=== PATIENT | female | born 1980 | race Caucasian/White ===

== ENCOUNTER 2020-08-28 12:16 | Outpatient (CLI) | payer BC, SELFPAY ==
--- NOTE | ~2020-08-28 | MMUS_ITS ---
EXAMINATION: MM diagnostic alana LT w hellen, US breast LT limited HISTORY: Palpable left breast abnormality TECHNIQUE: Additional 3-D tomosynthesis images of the left breast were performed and synthetic 2-D im ages were generated. CAD analysis was submitted and interpreted. High resolution targeted left breast ultrasound was performed. COMPARISON: 04/04/2016 BREAST PARENCHYMAL COMPOSITION: Breast composed of scattered areas of fibroglandular density. FINDINGS: MAMMOGRAPHIC FINDINGS: There is focal asymmetry in the area of palpable concern in the upper inner quadrant posteriorly, alt almas no discrete mass identified. No suspicious calcifications or architectural distortion. ULTRASOUND: Limited left breast ultrasound: There is a 2 mm cyst at 11:00, 14 cm from the nipple in the area of p alpable concern. No suspicious solid masses are identified. IMPRESSION: 1. Subtle focal asymmetry near the area of palpable concern without definite sonographic correlate. 2. Recommend 6 month follow-up diagnostic left mammogram BI-RADS category 3, probably benign findings. Reviewed, dictated and finalized at location A. IMPRESSION: 1. Subtle focal asymmetry near the area of palpable concern without definite so nographic correlate. 2. Recommend 6 month follow-up diagnostic left mammogram BI-RADS category 3, probably benign findings.
== END 2020-08-28 12:17 | disposition home or self-care (01) ==
PROVIDERS: PCP Internal Medicine; Visit Provider Internal Medicine
DX: N63.20 Unspecified lump in the left breast, unspecified quadrant (principal)
CPT/HCPCS: 76642; 77061; 77065; G0279

== ENCOUNTER 2020-10-02 11:22 | Outpatient (CLI) | payer BC, SELFPAY ==
[2020-10-03 01:03] LABS: SARS-CoV-2 RNA PCR Positive
== END 2020-10-02 11:23 | disposition home or self-care (01) ==
PROVIDERS: PCP Internal Medicine; Visit Provider Internal Medicine
DX: U07.1 COVID-19 (principal)
CPT/HCPCS: 87635; C9803; U0003

== ENCOUNTER 2020-10-09 00:19 | Outpatient (CLI) | payer BC, SELFPAY ==
[2020-10-09 19:24] LABS: SARS-CoV-2 RNA PCR Positive
== END 2020-10-09 00:20 | disposition home or self-care (01) ==
LOC: ANHCOVIDDT 00:19
PROVIDERS: PCP Internal Medicine; Visit Provider Surgery
DX: U07.1 COVID-19 (principal)
CPT/HCPCS: 87635; C9803; U0003

== ENCOUNTER 2021-03-03 17:23 | Outpatient (CLI) | payer BC, SELFPAY ==
[2021-03-03 17:34] LABS: Basophils Absolute Auto 0.09 K/mm3 (0.00-0.10); Basophils Percent Auto 0.7 % (0.0-1.0); Eosinophils Absolute Auto 0.12 K/mm3 (0.02-0.50); Hematocrit 41.6 % (35.0-49.0); Hemoglobin 13.6 g/dL (12.0-15.0); Immature Granulocyte Absolute 0.05 K/mm3 (0.00-0.00); Immature Granulocyte Percent A 0.4 % (0.0-0.0); Lymphocytes Percent Auto 26.6 % (18.0-42.0); Mean Corpuscular HGB Conc 32.7 g/dL (32.0-36.0); Mean Corpuscular Hemoglobin 28.6 pg (27.0-31.0); Mean Corpuscular Volume 87.6 fL (78.0-102.0); Mean Platelet Volume 11.7 fl (9.2-11.8); Monocytes Absolute Auto 0.79 K/mm3 (0.10-0.90); Monocytes Percent Auto 6.6 % (2.0-11.0); Neutrophils Absolute Auto 7.8 K/mm3 (1.7-7.2); Neutrophils Percent Auto 64.7 % (50.0-70.0); Platelet Count Result 362 K/mm3 (150-420); Red Blood Count 4.75 M/mm3 (4.20-5.40); Red Cell Distribution Width 13.4 % (11.6-14.4)
[2021-03-03 19:08] LABS: Alanine Aminotransferase 63 U/L (14-59); Albumin Level 3.7 g/dL (3.4-5.0); Alkaline Phosphatase 116 U/L (46-116); Anion Gap 10 mmol/L (8-16); Aspartate Amino Transferase 30 U/L (15-37); Bilirubin,Total 0.4 mg/dL (0.00-1.00); Blood Urea Nitrogen 13 mg/dL (7-18); Calcium 9.1 mg/dL (8.5-10.1); Carbon Dioxide 28 mmol/L (21-32); Chloride 102 mmol/L (98-108); Estimated Glomerular Filt Rate > 60; Glucose 77 mg/dL (70-99); Osmolality Calculated 289 mOsm/kg (285-295); Potassium 4.2 mmol/L (3.5-5.1); Sodium 140 mmol/L (136-145); Thyroid Stimulating Hormone 0.01 uIU/mL (0.36-3.74); Total Protein 7.1 g/dL (6.4-8.2)
[2021-03-03 19:10] LABS: Vitamin B12 > 2000 pg/mL (193-986)
[2021-03-08 04:13] LABS: Vitamin D 25 Hydroxy 33 ng/mL (30-100)
[2021-03-08 10:02] LABS: Vitamin D 1,25 (OH)2 Total 66 pg/mL (18-72); Vitamin D2 1,25 (OH)2 <8 pg/mL; Vitamin D3 1,25 (OH)2 66 pg/mL
[2021-03-09 09:23] LABS: Hepatitis A Antibody IgM Nonreactive; Hepatitis B Core Antibody Nonreactive (Nonreactive); Hepatitis B Surface Antigen Nonreactive (Nonreactive); Hepatitis C Signal to Cutoff 0.01 ratio (<1.00); Hepatitis C Virus Antibody Nonreactive (Nonreactive)
== END 2021-03-03 17:24 | disposition home or self-care (01) ==
LOC: CHSLAB 17:25
PROVIDERS: PCP Internal Medicine; Visit Provider Internal Medicine
DX: E03.9 Hypothyroidism, unspecified (principal); Z98.84 Bariatric surgery status; R94.5 Abnormal results of liver function studies
CPT/HCPCS: 36415; 80053; 80074; 82306; 82607; 82652; 84443; 85025

== ENCOUNTER 2022-02-03 09:05 | Outpatient (CLI) | payer OTHER, BC, SELFPAY ==
[2022-02-03 09:21] LABS: Basophils Absolute Auto 0.07 K/mm3 (0.00-0.10); Basophils Percent Auto 0.8 % (0.0-1.0); Eosinophils Percent Auto 1.2 % (1.0-6.0); Hematocrit 40.3 % (35.0-49.0); Hemoglobin 13.3 g/dL (12.0-15.0); Immature Granulocyte Absolute 0.02 K/mm3 (0.00-0.00); Immature Granulocyte Percent A 0.2 % (0.0-0.0); Lymphocytes Percent Auto 35.8 % (18.0-42.0); Mean Corpuscular Volume 90.8 fL (78.0-102.0); Mean Platelet Volume 11.5 fl (9.2-11.8); Monocytes Absolute Auto 0.68 K/mm3 (0.10-0.90); Monocytes Percent Auto 8.1 % (2.0-11.0); Neutrophils Absolute Auto 4.5 K/mm3 (1.7-7.2); Neutrophils Percent Auto 53.9 % (50.0-70.0); Platelet Count Result 340 K/mm3 (150-420); Red Blood Count 4.44 M/mm3 (4.20-5.40); Red Cell Distribution Width 12.8 % (11.6-14.4); White Blood Count 8.4 K/mm3 (4.8-10.8)
[2022-02-03 10:05] LABS: Add Urine Microscopic? NO; Appearance Urine Clear (Clear); Bilirubin Urine Negative (Negative); Blood Urine Negative (Negative); Color Urine Yellow (Yellow); Glucose Urine UA Negative (Negative); Ketones Urine Negative (Negative); Leukocyte Esterase Ur Negative (Negative); Nitrate Urine Negative (Negative); Protein Urine Negative (Negative); Urobilinogen Urine 0.2 mg/dL (0.2-1.0)
[2022-02-03 10:12] LABS: Alanine Aminotransferase 50 U/L (14-59); Albumin Level 3.5 g/dL (3.4-5.0); Alkaline Phosphatase 83 U/L (46-116); Anion Gap 8 mmol/L (8-16); Aspartate Amino Transferase 22 U/L (15-37); Bilirubin,Total 0.7 mg/dL (0.00-1.00); Blood Urea Nitrogen 18 mg/dL (7-18); Calcium 8.6 mg/dL (8.5-10.1); Carbon Dioxide 27 mmol/L (21-32); Chloride 104 mmol/L (98-108); Cholesterol 163 mg/dL (0-200); Estimated Glomerular Filt Rate > 60; Ferritin 157 ng/mL (8-252); Glucose 79 mg/dL (70-99); HDL Direct 63 mg/dL (40-60); Iron 117 ug/dL (50-170); LDL Cholesterol Calculated 86 mg/dL (<130); Osmolality Calculated 288 mOsm/kg (285-295); Potassium 4.5 mmol/L (3.5-5.1); Sodium 139 mmol/L (136-145); Thyroid Stimulating Hormone 0.14 uIU/mL (0.36-3.74); Total Protein 6.6 g/dL (6.4-8.2); Triglycerides 69 mg/dL (0-150)
[2022-02-03 10:13] LABS: Vitamin B12 > 2000 pg/mL (193-986)
[2022-02-08 10:33] LABS: Vitamin D 1,25 (OH)2 Total 49 pg/mL (18-72); Vitamin D2 1,25 (OH)2 <8 pg/mL; Vitamin D3 1,25 (OH)2 49 pg/mL
[2022-02-10 15:12] LABS: Vitamin D 25 Hydroxy 31 ng/mL (30-100)
== END 2022-02-03 09:06 | disposition home or self-care (01) ==
LOC: CHSLAB 09:10
PROVIDERS: PCP Internal Medicine; Visit Provider Internal Medicine
DX: Z00.00 Encounter for general adult medical examination without abnormal findings (principal); Z98.84 Bariatric surgery status
CPT/HCPCS: 36415; 80053; 80061; 81003; 82306; 82607; 82652; 82728; 83540; 84443; 85025

== ENCOUNTER 2022-03-04 11:37 | Emergency (ER) | payer OTHER, BC, SELFPAY ==
--- NOTE | ~2022-03-04 | US_ITS ---
EXAMINATION: US right upper quadrant DATE: 03/04/2022 12:23 INDICATION: Right upper quadrant pain TECHNIQUE: Multiple grayscale and Doppler ultrasound images of the abdomen were obtained. COMPARISON: None available FINDINGS: The head and body of the pancreas are normal. The pancreatic tail is obscured by bowel gas. The liver is normal with normal echogenicity and echotexture. No surface nodularity. Normal hepatope alex flow in the main portal vein. Stones are present in the nondistended gallbladder. There is no per icholecystic fluid or gallbladder wall thickening. The normal common bile duct measures 5 mm. There w as no sonographic Evans sign. IMPRESSION: 1. Cholelithiasis without additional findings of acute cholecystitis. Reviewed, dictated and finalized at location A.
--- NOTE | ~2022-03-04 | CT_ITS ---
EXAMINATION: CT abdomen pelvis wo con EXAM DATE: 03/04/2022 12:55 INDICATION: RUQ pain radiates to flank,N/V,X2HR . TECHNIQUE: Spiral CT of the abdomen and pelvis was performed without contrast. Axial, coronal and sag ittal images were reviewed. The dose-length product (DLP) for this examination was 884.46 mGy-cm. T he exposure was tailored according to patient size (auto mA exposure control), and iterative reconstr uction (ASIR) was used as additional dose reduction technique. There is no prior study for compariso n. FINDINGS: There is 4 mm left mid calyceal stone. No ureteral stones or hydronephrosis. The uterus i s not identified and has likely been surgically resected. The bladder is unremarkable. The liver, s pleen, adrenal glands and pancreas are unremarkable. The gallbladder is distended but otherwise unre markable, no calcified cholelithiasis. There is no biliary duct dilation. There is no retroperitone al or pelvic lymphadenopathy. There is mild scattered arteriosclerotic disease. The appendix is normal. There are surgical changes from intact gastric bypass surgery. There is mild to moderate scattered colonic diverticulosis. There is no adjacent inflammatory change to suggest d iverticulitis. There is expected amount of colonic stool. No free intraperitoneal gas. The heart is normal in size. There are no pericardial or pleural effusions. The lung bases are unremarkable. There are no osteoblastic or osteolytic lesions identified. IMPRESSION: 1. Moderately distended, but otherwise unremarkable gallbladder. 2. Left nephrolithiasis. No hydronephrosis. 3. Mild to moderate colonic diverticulosis. Reviewed, dictated and finalized at location B.
[2022-03-04 11:37] VITALS: BP 145/85; PULSE 78; RESP 20; TEMP 36.6
--- NOTE | 2022-03-04 11:45 | ECG_ITS ---
Measurements Intervals [place] Rate: 67 P: 47 RI: 152 QRS: 56 QRSD: 116 T: 47 QT: 412 QTc: 436 Interpretive Statements SINUS RHYTHM MODERATE INTRAVENTRICULAR CONDUCTION DELAY [110+ ms QRS DURATION] ABNORMAL ECG INTERPRETATION BASED ON A DEFAULT AGE OF 40 YEARS NO PREVIOUS ECG AVAILABLE FOR COMPARISON Electronically Signed On 03-05-2022 11:37:56 CDT by Abdullahi Lazaro M.D.
--- NOTE | 2022-03-04 11:45 | ED.ABDPAIN ---
HPI - Abdominal Pain General Chief Complaint: Abdominal Pain Stated Complaint: UNKNOWN Time Seen by Provider: 03/04/22 11:38 Source: patient and RN notes reviewed Mode of arrival: ambulatory Limitations: no limitations History of Present Illness HPI narrative: Patient presented with acute onset of right upper quadrant abdominal pain radiation to her right flank and back. She presented feeling short of breath that she now reports is due to the pain. She denies any problems with her gallbladder. She denies any chest pain. She feels nauseated. She denies any fever chills, dysuria, diarrhea. MD elicited complaint: abdominal pain Pertinent past history: none Onset (ago): minute(s) (20) Pain Consistency: constant Location: RUQ Severity: moderate Quality: stabbing and sharp Radiation: R flank and back Migration to: no migration Exacerbating factors: nothing Relieving factors: nothing Associated symptoms: nausea Related Data Home Medications Medication Instructions Recorded Confirmed levothyroxine 175 mcg tablet 150 mcg PO DAILY 08/31/20 03/04/22 Allergies Allergy/AdvReac Type Severity Reaction Status Date / Time topiramate AdvReac Mild tingling Verified 09/11/20 10:24 Review of Systems Review of Systems: All systems reviewed & are unremarkable except as noted in HPI and below Constitutional: Constitutional: Denies chills and Denies fever(s) Cardiovascular: Cardiovascular: Denies chest pain Respiratory: Respiratory: Denies cough and Reports dyspnea Gastrointestinal: Gastrointestinal: Denies diarrhea, Reports nausea and Denies vomiting Genitourinary: Genitourinary: Denies hematuria and Denies dysuria [facility] Past Medical History Medical History (Updated 03/04/22 @ 14:09 by Jacob Cam MD) Hypothyroid Surgical History Surgical History (Updated 03/04/22 @ 12:03 by Jacob Cam MD) H/O gastric sleeve H/O: hysterectomy 2013 History of tonsillectomy and adenoidectomy Hx of tubal ligation Family History Family History Grandparent Breast cancer Other Breast cancer Social History Social History Smoking packs per day: 0.5 Smoking cigarettes per day: 10.0 Years smoked: 10 Smoking pack-years: 5.00 Smoking status: Former smoker Tobacco type: cigarettes Second hand tobacco smoke exposure: No Smoking end date: 09/20/19 Alcohol intake: current Alcohol use details: social Additional occupation/education comments: Corn Grower Gender identity (if verbalized by the patient): Female Spiritual care concerns: No Exam Const: General: no acute distress, alert and ill appearing acutely Nutritional Appearance: well nourished Orientation/consciousness: patient oriented x3 HENMT: Head: normal to inspection Ears: external ears normal Face and sinus: normal facial exam Mouth: Yes moist mucous membranes Eyes: Conjunctivae: conjunctivae normal Pupils: Equal, round and reactive pupils present EOM: EOMs intact bilaterally Neck: Neck: normal visual inspection Resp: Effort & Inspection: normal respiratory effort Auscultation: clear to auscultation bilaterally Cardio: Rate: regular rate Rhythm: regular rhythm GI: GI Palp: Yes Soft to palpation, Yes Tenderness to palpation present (GI) ( severe RUQ with moderate guarding), Yes Guarding due to palpation present (GI) and No Rebound tenderness present Auscultation: normal bowel sounds : General: Yes CVA tenderness on the right Back/Spine/Pelvis: Cervical Spine: cervical ROM normal Thoracic/Lumbar Spine: thoraco-lumbar ROM normal Skin: General skin exam: normal color Rashes: no rashes Neuro: General: patient oriented x3, moves all extremities, no meningeal signs, no focal motor deficits and CN's II-XI intact bilaterally Speech: normal speech Gait exam (Neuro): Normal gait present Extrem: Gener
[2022-03-04] MEDS: HYDROmorphone HCL INJ (*CRX) 2 MG/ML VIAL 1 MG IV PUSH (11:56)
[2022-03-04 12:05] LABS: Basophils Absolute Auto 0.08 K/mm3 (0.00-0.10); Basophils Percent Auto 0.7 % (0.0-1.0); Eosinophils Absolute Auto 0.06 K/mm3 (0.02-0.50); Eosinophils Percent Auto 0.5 % (1.0-6.0); Hematocrit 39.5 % (35.0-49.0); Hemoglobin 13.1 g/dL (12.0-15.0); Immature Granulocyte Absolute 0.03 K/mm3 (0.00-0.00); Immature Granulocyte Percent A 0.3 % (0.0-0.0); Lymphocytes Absolute Auto 4.11 K/mm3 (1.10-4.50); Lymphocytes Percent Auto 35.7 % (18.0-42.0); Mean Corpuscular HGB Conc 33.2 g/dL (32.0-36.0); Mean Corpuscular Hemoglobin 29.3 pg (27.0-31.0); Mean Corpuscular Volume 88.4 fL (78.0-102.0); Mean Platelet Volume 11.1 fl (9.2-11.8); Monocytes Absolute Auto 0.83 K/mm3 (0.10-0.90); Monocytes Percent Auto 7.2 % (2.0-11.0); Neutrophils Absolute Auto 6.4 K/mm3 (1.7-7.2); Neutrophils Percent Auto 55.6 % (50.0-70.0); Platelet Count Result 389 K/mm3 (150-420); Red Blood Count 4.47 M/mm3 (4.20-5.40); Red Cell Distribution Width 12.9 % (11.6-14.4); White Blood Count 11.5 K/mm3 (4.8-10.8)
--- NOTE | 2022-03-04 12:26 | PC.NURSE ---
pt complaint of nausea and emesis of yellow green phelgm during ultrasound.
[2022-03-04] MEDS: ONDANSETRON INJ 4 MG/2 ML VIAL IV PUSH (12:27)
[2022-03-04 12:28] VITALS: BP 125/74; PULSE 64; RESP 20; O2SAT 100
[2022-03-04 12:29] LABS: Alanine Aminotransferase 78 U/L (14-59); Albumin Level 3.6 g/dL (3.4-5.0); Alkaline Phosphatase 91 U/L (46-116); Anion Gap 16 mmol/L (8-16); Aspartate Amino Transferase 91 U/L (15-37); Bilirubin,Total 0.5 mg/dL (0.00-1.00); Blood Urea Nitrogen 13 mg/dL (7-18); Calcium 8.9 mg/dL (8.5-10.1); Carbon Dioxide 18 mmol/L (21-32); Chloride 102 mmol/L (98-108); Estimated CRCL calculation 97 ml/min; Estimated Glomerular Filt Rate > 60; Glucose 147 mg/dL (70-99); Lipase 77 U/L (73-393); Osmolality Calculated 285 mOsm/kg (285-295); Potassium 3.1 mmol/L (3.5-5.1); Sodium 136 mmol/L (136-145); Total Protein 7.2 g/dL (6.4-8.2)
[2022-03-04 12:30] LABS: CRP < 0.2 mg/dL (0.0-0.9)
[2022-03-04 13:19] VITALS: PULSE 77; RESP 20; O2SAT 100
--- NOTE | 2022-03-04 13:20 | PC.NURSE ---
DR MULLEN IN WITH PT TO DISCUSS PT CARE.
[2022-03-04 14:09] VITALS: BP 112/74; PULSE 56; RESP 20; TEMP 36.4; O2SAT 98
[2022-03-04] MEDS: ONDANSETRON HCL ODT 4 MG TABLET PO (14:26)
== END 2022-03-04 14:28 | disposition home or self-care (01) ==
PROVIDERS: Emergency Provider Emergency Medicine; PCP Internal Medicine
DX: K80.20 Calculus of gallbladder without cholecystitis without obstruction (principal)
CPT/HCPCS: 36415; 74176; 76705; 80053; 83690; 85025; 86140; 93005; 96374; 96375; 96376; 99284; A9270; J1170; J2405

== ENCOUNTER 2022-03-25 11:05 | Outpatient (CLI) | payer OTHER, BC, SELFPAY ==
[2022-03-25 11:49] LABS: Alanine Aminotransferase 44 U/L (14-59); Albumin Level 3.4 g/dL (3.4-5.0); Alkaline Phosphatase 95 U/L (46-116); Amylase 34 U/L (25-115); Anion Gap 6 mmol/L (8-16); Aspartate Amino Transferase 31 U/L (15-37); Bilirubin Direct 0.1 mg/dL (0-0.2); Bilirubin,Total 0.5 mg/dL (0.00-1.00); Blood Urea Nitrogen 9 mg/dL (7-18); Calcium 8.6 mg/dL (8.5-10.1); Carbon Dioxide 29 mmol/L (21-32); Chloride 103 mmol/L (98-108); Estimated Glomerular Filt Rate > 60; Glucose 83 mg/dL (70-99); Lipase 56 U/L (73-393); Osmolality Calculated 283 mOsm/kg (285-295); Potassium 3.9 mmol/L (3.5-5.1); Sodium 138 mmol/L (136-145); Total Protein 7.1 g/dL (6.4-8.2)
== END 2022-03-25 11:06 | disposition home or self-care (01) ==
LOC: CHSLAB 11:08
PROVIDERS: PCP Internal Medicine; Visit Provider Surgery
DX: K80.10 Calculus of gallbladder with chronic cholecystitis without obstruction (principal)
CPT/HCPCS: 36415; 80053; 82150; 82248; 83690

== ENCOUNTER 2022-03-28 02:07 | Day surgery (SDC) | payer OTHER, BC, SELFPAY ==
[2022-03-21 14:45] VITALS: BMI 29.6
--- NOTE | 2022-03-21 15:30 | SUR.PREOP ---
Report to the Outpatient Waiting Room, entrance under the green pavilion located off [facility], at time 0600 on date 03/28/22. OR Time: 0730. - You and your visitor will be asked a series of questions to screen for COVID 19 for your protection. - Only one visitor is allowed at this time. - The patient visitor is requested to leave or wait in car when not with patient. - A mask is required within the hospital. Patients may have clear liquids (water, carbonated beverages, clear teas, apple juice) until 3 hours prior to surgery with a maximum of 20 ounces. - No food from midnight until time of surgery - Infants may have breast milk until 4 hours before surgery, infant formula 6 hours prior to surgery. - Children will be allowed to drink immediately following surgery. If applicable, please bring a bottle or sippy cup to assist with drinking. Juice, water, soda, and popsicles are readily available. For infants on formula, please bring formula the day of surgery. Pacifiers are allowed. Take the following medications with a SIP of water the morning of surgery: LEVOTHYROXINE Medications to discontinue per physician N/A Date to take last dose STOP VITAMINES AND SUPPLIMENTS 3 DAYS PRIOR TO SURGERY Please no make-up, nail pashto, hairspray, perfume, deodorant, or body powder the day of surgery. No jewelry (including any body piercings) or valuables the day of surgery, leave them at home. Please take a shower or bath the night before, or the morning of, surgery with an antibacterial soap. Wear comfortable, loose fitting clothing. Children are encouraged to wear pajamas. - Jewelry must be removed prior to entering the operating room. Rings and piercings that are not removed may be cut off. - The hospital will not accept responsibility for valuables. - Please leave all valuables, including medications, at home the day of surgery. If you are going home after surgery, a licensed batch mixing truck driver must drive you home. - NO public transportation without another adult. - We recommend that an adult stay with you for 24 hours following discharge. - We also recommend that you do not drive, make important decision, drink alcoholic beverages, or take any drugs that were not prescribed by your health care provider for at least 24 hours after your discharge time. For Pediatric surgeries, we recommend two adults accompany the child home (only one inside the building at this time). Follow any additional instructions given to you from your surgeon. If you or anyone in your household have experienced Covid symptoms in the past week, please notify your surgeon or the nurse liaison at the phone number below for possible testing. Telephone instructions given to RICKY GONSALEZ and asked if any additional questions and then verbalized understanding. Patient advised to call surgeon office or pre surgery nurse liaison [phone] if any additional questions. PT WAS ASKED TO COME IN TO DO PREOP LABS. SHE IS TRYING TO GET IN AT [facility] ON MONDAY WHEN SHE GETS BACK FROM VACATION.
[2022-03-28] VITALS (11 sets, daily range): BP systolic 105–129; BP diastolic 61–91; PULSE 50–80; RESP 12–20; TEMP 36.2–36.7; O2SAT 96–100; BMI 30.3
[2022-03-28] MEDS: ACETAMINOPHEN 500 MG TABLET 1000 MG PO (06:59)
[2022-03-28] MEDS: KETOROLAC 15 MG/ML VIAL (*BKC) IV PUSH (07:00)
--- NOTE | 2022-03-28 07:18 | P.PNAN_ITS ---
Anes - Eval Pre Procedure Procedure: Operation Date: 03/28/22 07:30 Proposed Procedures p Laparoscopic Cholecystectomy, Possible Intraoperative Cholangiogram, Possible Open - Dahsawn Chang MD Date/Time: 03/28/22 07:18 Pre Op Diagnosis: Chronic Cholecystitis with Cholelithiasis Patient Data Age: 41 Gender: F Height: 1.73 m Weight: 90.4 kg Last Vital Signs Temp 36.7 C 03/28/22 07:04 Pulse 56 L 03/28/22 07:04 Resp 20 03/28/22 07:04 BP 129/91 H 03/28/22 07:04 Pulse Ox 100 03/28/22 07:04 Allergies Allergy/AdvReac Type Severity Reaction Status Date / Time topiramate AdvReac Mild tingling Verified 03/28/22 06:43 Home Medications Medication Instructions Recorded Confirmed Type levothyroxine 175 mcg tablet 150 mcg PO DAILY 08/31/20 03/21/22 History hydrocodone-acetaminophen 1 tablet PO Q6H PRN #10 tablet 03/04/22 03/21/22 Rx ondansetron HCl 4 mg PO Q8H PRN #10 tablet 03/04/22 03/21/22 Rx calcium 1 cap PO DAILY 03/21/22 03/28/22 History multivitamin 1 cap PO DAILY 03/21/22 03/28/22 History Patient hx anesthesia problems: post op nausea/vomiting Family hx anesthesia problems: none Results Review: All pre-operative results and documents have been reviewed as part of the pre-operative evaluation. [facility] Past Medical History Medical History Hypothyroid Surgical History Surgical History H/O gastric sleeve H/O: hysterectomy 2013 History of tonsillectomy and adenoidectomy Hx of tubal ligation Family History Family History Grandparent Breast cancer Other Breast cancer Social History Social History Smoking packs per day: 0.5 Smoking cigarettes per day: 10.0 Years smoked: 10 Smoking pack-years: 5.00 Smoking status: Former smoker Tobacco type: cigarettes Second hand tobacco smoke exposure: No Smoking end date: 09/20/19 Alcohol intake: current Alcohol use details: social Living arrangements: with family 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
--- NOTE | 2022-03-28 07:23 | WPDHPUPDATE1 ---
History and Physical Update Update Date/Time: 03/28/22 07:23 History and Physical has been reviewed, including an updated exam of the patient. There are NO changes in the patient's condition. Risks, benefits, and alternatives have been discussed and questions answered. Patient agrees to proceed with procedure.
--- NOTE | 2022-03-28 07:26 | P.PNAN_ITS ---
Anes - Initial Pre Proc Eval Procedure: Operation Date: 03/28/22 07:30 Proposed Procedures p Laparoscopic Cholecystectomy, Possible Intraoperative Cholangiogram, Possible Open - Dashawn Chang MD Date/Time: 03/28/22 07:26 Surgeon: Dashawn Chang MD Pre Op Diagnosis: Chronic Cholecystitis with Cholelithiasis Patient Data Age: 41 Gender: F Height: 1.73 m Weight: 90.4 kg Last Vital Signs Temp 36.7 C 03/28/22 07:04 Pulse 56 L 03/28/22 07:04 Resp 20 03/28/22 07:04 BP 129/91 H 03/28/22 07:04 Pulse Ox 100 03/28/22 07:04 Allergies Allergy/AdvReac Type Severity Reaction Status Date / Time topiramate AdvReac Mild tingling Verified 03/28/22 06:43 Home Medications Medication Instructions Recorded Confirmed Type levothyroxine 175 mcg tablet 150 mcg PO DAILY 08/31/20 03/21/22 History hydrocodone-acetaminophen 1 tablet PO Q6H PRN #10 tablet 03/04/22 03/21/22 Rx ondansetron HCl 4 mg PO Q8H PRN #10 tablet 03/04/22 03/21/22 Rx calcium 1 cap PO DAILY 03/21/22 03/28/22 History multivitamin 1 cap PO DAILY 03/21/22 03/28/22 History Patient hx anesthesia problems: post op nausea/vomiting Family hx anesthesia problems: none Results Review: All pre-operative results and documents have been reviewed as part of the pre-operative evaluation. [facility] Past Medical History Medical History Anxiety Hypothyroid Surgical History Surgical History H/O gastric sleeve H/O: hysterectomy 2013 History of tonsillectomy and adenoidectomy Hx of tubal ligation Family History Family History Grandparent Breast cancer Other Breast cancer Social History Social History Smoking packs per day: 0.5 Smoking cigarettes per day: 10.0 Years smoked: 10 Smoking pack-years: 5.00 Smoking status: Former smoker Tobacco type: cigarettes Second hand tobacco smoke exposure: No Smoking end date: 09/20/19 Alcohol intake: current Alcohol use details: social Living arrangements: with family 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 Informed Consent: The patient's anesthetic plan and its attendant risks and benefits were discussed with the patient/family/POA. Questions were solicited and answers provided to the satisfaction of the patient/family/POA.
[2022-03-28] MEDS: LACTATED RINGERS 1,000 ML 30 ML IV CONT ×2 (07:29→09:12)
[2022-03-28] MEDS: SCOPOLAMINE 1.5 MG PATCH TRANSDERM (07:29)
[2022-03-28] MEDS: ceFAZolin 2 GM/D5W 50 ML 2 GM/50 ML BAG IVPB (07:32)
[2022-03-28] MEDS: LIDO 2%/EPINEPHRINE 1:100,000 20 ML VIAL INFILTRATE (08:13)
--- NOTE | 2022-03-28 09:22 | P.OP_ITS ---
Procedure Note - Detailed Date of Procedure 03/28/22 Pre-op Diagnosis Chronic Cholecystitis with Cholelithiasis Post-op Diagnosis Same Procedure Performed Laproscopic Cholecystectomy Surgeon Dashawn Chang MD Rf Manager Em [email or web address].OR assistant news director Anesthesia General Indications Patient has had several episodes of significant epigastric pain. One did take her to the ER and at that time diagnosis was made of gallstones. Patient was seen in the office and after thorough discussion has elected for surgical intervention to avoid future episodes of problems. She has been carefully followed a low-fat diet and has not had further episodes since her office visit. Findings An apparently chronically inflamed gallbladder with palpable stones upon removal. Mild adhesions to the gallbladder from the omentum were present. Description of Procedure Patient was seen preoperatively in the holding area and risks, benefits and alternatives confirmed. Patient was taken to the operating room and general anesthesia was induced. A time out was then preformed with the surgery team confirming patient and site of surgery. The abdomen was prepped and draped in the usual sterile fashion. Incision was made just below the umbilicus with an 11 blade knife. I placed 2 stay sutures of O- Vicryl on either side of the mid- line fascia beneath the umbilicus and was then able to slide in the Elizalde cannula through the fascial defect into the peritoneum. First under low flow and then under high flow the abdomen was insufflated with carbon dioxide never exceeding a pressure of 14. Three 5 mm trocars were then introduced under direct vision. The following trocars were introduced under direct vision: a 5 mm in the epigastrium and two 5 mm trocars along the right costal margin laterally in the subcostal area. There were not many adhesions to the underside of the gallbladder. These were taken down with blunt and sharp dissection using some Bovie cautery for hemostasis. We were able to dissect this completely away from the neck of the gallbladder. I then carefully used the L-shaped cautery and the [place] dissector to dissect out the triangle of [place]. I then was able to dissect out both the cystic duct and cystic artery and identify a window of safety. The gall bladder was grasped and the cystic duct and artery were dissected free and clipped with an 5 mm endo-clip team assembly line machine operator. The cystic duct and artery were clipped with use of 2 clips on the patient's side 1 on the gallbladder side utilizing a 5 mm endoclip-team assembly line machine operator. The cystic duct was then transected. The cystic artery was also transected at this point. The gall bladder was removed using electrocautery and then removed from the abdomen using a large 10 mm grasper via the umbilical incision. The trocars were removed visualizing hemostasis and the remaining gas evacuated. The large trocar site at the umbilicus was closed with use of the 2 stay sutures of 0 Vicryl mentioned above and also a figure of 8 O-Vicryl suture. The 2 stay sutures mentioned above on either side of the fascia were also tied together to help approximate this midline fascia. Further local anesthetic was placed into each incision for postop pain control. The skin incisions were closed with subcuticular suture of 4-0 Monocryl. Surgical glue then was applied to all the incisions. Patient tolerated the procedure well was taken to the recovery room in good condition. Implants none Estimated Blood Loss 10 Drains No Packing No Pathology Yes (Gallbladder) Complications No immediate complications Condition Stable Disposition PACU
[2022-03-28] MEDS: fentaNYL CITRATE INJ (*CRX) 100 MCG/2 ML VIAL 25 MCG IV PUSH ×4 (09:38→10:00)
[2022-03-28] MEDS: oxyCODONE HCL (*CRX) 5 MG TAB IR PO (10:58)
--- NOTE | 2022-03-28 11:04 | SUR.PHASEII ---
1055 - dr. abbott in room talking with pt and pt's family
== END 2022-03-28 12:43 | disposition home or self-care (01) ==
PROVIDERS: PCP Internal Medicine; Visit Provider Surgery
PROC: 0FT44ZZ Resection of Gallbladder, Percutaneous Endoscopic Approach (ICD-10-PCS; CPT 47562; principal; 2022-03-28 07:30)
DX: K80.10 Calculus of gallbladder with chronic cholecystitis without obstruction (principal); R10.11 Right upper quadrant pain; K57.30 Diverticulosis of large intestine without perforation or abscess without bleeding; E03.9 Hypothyroidism, unspecified; Z87.891 Personal history of nicotine dependence; F41.9 Anxiety disorder, unspecified
CPT/HCPCS: 47562; 88304; A9270; J0690; J1100; J1170; J1885; J2250; J2405; J2704; J2710; J3010; J7030; J7120; Q9966

== ENCOUNTER 2022-09-23 12:56 | Outpatient (CLI) | payer OTHER, BC, SELFPAY ==
--- NOTE | ~2022-09-23 | CT_ITS ---
EXAMINATION: CT abdomen pelvis wo con DATE: 09/23/2022 13:24 INDICATION: Left flank pain. Known left-sided stone. Difficulty urinating. TECHNIQUE: Computed tomography (CT) of the abdomen and pelvis was performed without intravenous contr ast. Automated exposure control and iterative reconstruction technique were employed. Exam dose: 470 .00 mGy-cm total exam DLP. COMPARISON: March 04, 2022 CT abdomen pelvis FINDINGS: The lung bases are clear. Normal heart size. No pericardial or pleural effusion. Small sliding hiatal hernia. Postoperative change of the stomach. Status post cholecystectomy. No hepatic, splenic, pancreatic, adrenal or renal space-occupying mass lesion is evident on this limi latanya noncontrast examination. There is a 3 x 4.7 mm calculus at the left ureterovesical junction, without significant dilatation of the ureter or renal collecting system. No other urinary tract calculus. Normal caliber of the abdominal aorta. No intraperitoneal or retroperitoneal or pelvic mass lesion or adenopathy or ascites. Diverticulosis of the colon; no CT evidence of diverticulitis. No bowel obstruction, bowel wall thick ening, pneumatosis or intraperitoneal free air is detected. The urinary bladder is unremarkable. Uterus is likely surgically absent.. No suspicious osteolytic or osteoblastic lesions. IMPRESSION: 3 x 4.7 mm left ureteral vesicle junction calculus with minimal if any left hydrouretero nephrosis Small sliding hiatal hernia Postoperative change of the stomach Status post cholecystectomy Probable hysterectomy Diverticulosis of the colon Reviewed, dictated and finalized at Location A. Reviewed, dictated and finalized at location A. IMPRESSION: 3 x 4.7 mm left ureteral vesicle junction calculus with minimal if any left hydroureteronephrosis Small sliding hiatal hernia Postoperative change of the stomach Status post cholecystectomy Probable hysterectomy Diverticulosis of the colon
== END 2022-09-23 12:57 | disposition home or self-care (01) ==
LOC: CHSIMG 12:57
PROVIDERS: PCP Internal Medicine; Visit Provider Internal Medicine
DX: N23 Unspecified renal colic (principal); N20.0 Calculus of kidney
CPT/HCPCS: 74176

== ENCOUNTER 2023-11-11 17:00 | Emergency (ER) | payer OTHER, BC, SELFPAY ==
[2023-11-11 17:10] VITALS: BP 132/70; PULSE 84; RESP 98; TEMP 37.2
--- NOTE | 2023-11-11 17:44 | ED.EYEPROB ---
HPI - Eye Problem General Chief complaint: Eye Problems Stated complaint: facial swelling Source: patient Mode of arrival: ambulatory Limitations: no limitations History of Present Illness HPI Narrative: this is a 42 year female recent diagnosis was currently a some progression with redness into skin around the right with fever chills no blurry vision no nausea no chest or shortness of the area is erythematous and tender to touch chief complaint: eye pain and eye redness Onset (ago): day(s) Onset description: gradual Duration: constant Location: right eye Related Data Home Medications Medication Instructions Recorded Confirmed levothyroxine 175 mcg tablet 150 mcg PO DAILY 08/31/20 11/11/23 multivitamin 1 cap PO DAILY 03/21/22 04/12/22 Allergies Allergy/AdvReac Type Severity Reaction Status Date / Time topiramate AdvReac Mild tingling Verified 11/11/23 17:26 Review of Systems Review of Systems: All systems reviewed & are unremarkable except as noted in HPI and below PMFSH Past Medical History Medical History Anxiety Hypothyroid Surgical History Surgical History H/O gastric sleeve H/O: hysterectomy 2012 History of laparoscopic cholecystectomy Laproscopic Cholecystectomy 03/28/22 History of tonsillectomy and adenoidectomy Hx of tubal ligation Family History Family History Grandparent Breast cancer Other Breast cancer Social History Social History Smoking packs per day: 0.5 Smoking cigarettes per day: 10.0 Years smoked: 10 Smoking pack-years: 5.00 Smoking status: Former smoker Tobacco type: cigarettes Second hand tobacco smoke exposure: No Smoking end date: 09/20/19 Alcohol intake: current Alcohol use details: social Living arrangements: with family Occupation/Education: occupation 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 Neck: Neck: normal visual inspection and lymphadenopathy Resp: Effort & Inspection: normal respiratory effort Auscultation: clear to auscultation bilaterally Cardio: Rate: regular rate Rhythm: regular rhythm Skin: Wounds: wounds noted Neuro: General: patient oriented x3 and moves all extremities Course Course Emergency Course: Patient advised to continue antibiotic high-Ca and dose of IM 1g ceftriaxone was given and prescription of antibiotic was prescribed and sent to her pharmacy. Vital Signs Vital signs: Vital Signs Temperature 37.2 C 11/11/23 17:10 Pulse Rate 84 11/11/23 17:10 Respiratory Rate 98 H 11/11/23 17:10 Blood Pressure 132/70 11/11/23 17:10 Oxygen Delivery Room Air 11/11/23 17:10 Temperature 37.2 C 11/11/23 17:10 Pulse Rate 84 11/11/23 17:10 Respiratory Rate 98 H 11/11/23 17:10 Blood Pressure 132/70 11/11/23 17:10 Oxygen Delivery Room Air 11/11/23 17:10 Critical Care Time Critical Care Time Critical Care Time: No Discharge Plan Discharge Clinical Impression: Periorbital cellulitis Patient Disposition: Home, Self-Care Condition: Stable Instructions: Antibiotic Form, Periorbital Cellulitis (ED) Additional Instructions: Take medicine as prescribed and can take Tylenol or Motrin along with prescribed antibiotics, follow-up primary care physician within a week further evaluati
[2023-11-11] MEDS: cefTRIAXone 1 GM, LIDOCAINE HCL 1% LOCAL INJ 2.1 ML IM (17:49)
[2023-11-11 17:52] VITALS: BP 134/72; PULSE 81; RESP 20; TEMP 36.8; O2SAT 98
== END 2023-11-11 18:20 | disposition home or self-care (01) ==
PROVIDERS: Emergency Provider Emergency Medicine; PCP Internal Medicine
DX: L03.213 Periorbital cellulitis (principal); E03.9 Hypothyroidism, unspecified; Z79.899 Other long term (current) drug therapy; Z87.891 Personal history of nicotine dependence
CPT/HCPCS: 96372; 99283; J0696

== ENCOUNTER 2023-12-19 15:57 | Outpatient (CLI) | payer OTHER, BC, SELFPAY ==
[2023-12-19 16:10] LABS: Appearance Urine Clear (Clear); Bilirubin Urine Negative (Negative); Blood Urine Negative (Negative); Color Urine Yellow (Yellow); Glucose Urine UA Negative (Negative); Ketones Urine Negative (Negative); Leukocyte Esterase Ur Negative (Negative); Nitrate Urine Negative (Negative); Protein Urine Negative (Negative); Specific Grav Ur 1.025 (1.010-1.020); Urobilinogen Urine 0.2 mg/dL (0.2-1.0)
[2023-12-19 16:12] LABS: Add Urine Microscopic? NO
[2023-12-19 16:16] LABS: Basophils Absolute Auto 0.09 K/mm3 (0.00-0.10); Basophils Percent Auto 0.9 % (0.0-1.0); Eosinophils Absolute Auto 0.11 K/mm3 (0.02-0.50); Eosinophils Percent Auto 1.1 % (1.0-6.0); Hematocrit 38.7 % (35.0-49.0); Hemoglobin 12.3 g/dL (12.0-15.0); Immature Granulocyte Absolute 0.03 K/mm3 (0.00-0.00); Immature Granulocyte Percent A 0.3 % (0.0-0.0); Lymphocytes Percent Auto 37.3 % (18.0-42.0); Mean Corpuscular HGB Conc 31.8 g/dL (32.0-36.0); Mean Corpuscular Hemoglobin 27.3 pg (27.0-31.0); Mean Corpuscular Volume 85.8 fL (78.0-102.0); Mean Platelet Volume 10.5 fl (9.2-11.8); Monocytes Absolute Auto 0.94 K/mm3 (0.10-0.90); Monocytes Percent Auto 9.7 % (2.0-11.0); Neutrophils Absolute Auto 4.9 K/mm3 (1.7-7.2); Neutrophils Percent Auto 50.7 % (50.0-70.0); Platelet Count Result 371 K/mm3 (150-420); Red Blood Count 4.51 M/mm3 (4.20-5.40); Red Cell Distribution Width 12.7 % (11.6-14.4); White Blood Count 9.7 K/mm3 (4.8-10.8)
[2023-12-19 16:58] LABS: Alanine Aminotransferase 44 U/L (14-59); Albumin Level 3.4 g/dL (3.4-5.0); Alkaline Phosphatase 82 U/L (46-116); Anion Gap 10 mmol/L (8-16); Aspartate Amino Transferase 21 U/L (15-37); Bilirubin,Total 0.4 mg/dL (0.00-1.00); Blood Urea Nitrogen 11 mg/dL (7-18); Calcium 8.6 mg/dL (8.5-10.1); Carbon Dioxide 27 mmol/L (21-32); Chloride 103 mmol/L (98-108); Cholesterol 195 mg/dL (0-200); Estimated Glomerular Filt Rate > 60; Glucose 83 mg/dL (70-99); HDL Direct 76 mg/dL (40-60); LDL Cholesterol Calculated 102 mg/dL (<130); Osmolality Calculated 288 mOsm/kg (285-295); Potassium 4.3 mmol/L (3.5-5.1); Sodium 140 mmol/L (136-145); Thyroid Stimulating Hormone 0.95 uIU/mL (0.36-3.74); Total Protein 7.1 g/dL (6.4-8.2); Triglycerides 84 mg/dL (0-150)
== END 2023-12-19 15:58 | disposition home or self-care (01) ==
LOC: CHSLAB 16:00
PROVIDERS: PCP Internal Medicine; Visit Provider Internal Medicine
DX: E03.9 Hypothyroidism, unspecified (principal)
CPT/HCPCS: 36415; 80053; 80061; 81003; 84443; 85025

== ENCOUNTER 2024-10-16 13:59 | Outpatient (CLI) | payer BC, OTHER, SELFPAY ==
[2024-10-16 15:15] LABS: HIV 1 P24 AG Negative (Negative); HIV 1/2 AB Negative (Negative)
[2024-10-19 04:43] LABS: Hepatitis C Virus Antibody NON-REACTIVE (NON-REACTIVE)
[2024-10-19 05:39] LABS: Hepatitis Be Antibody NON-REACTIVE (NON-REACTIVE)
[2024-10-21 10:44] LABS: RPR Screen NON-REACTIVE (NON-REACTIVE)
== END 2024-10-16 14:00 | disposition home or self-care (01) ==
LOC: CHSLAB 14:04
PROVIDERS: PCP Internal Medicine; Visit Provider Nurse Practitioner Obstetrics & Gynecology
DX: Z11.3 Encounter for screening for infections with a predominantly sexual mode of transmission (principal)
CPT/HCPCS: 36415; 86592; 86707; 86803; 87806

== ENCOUNTER 2024-10-21 09:51 | Outpatient (CLI) | payer OTHER, BC, SELFPAY ==
--- NOTE | ~2024-10-21 | MM_ITS ---
EXAMINATION: MM screening [facility] BI w hellen HISTORY: Screening TECHNIQUE: Craniocaudal and mediolateral oblique 3-D tomosynthesis images were obtained and synthetic 2-D images were generated. CAD analysis was submitted and interpreted. COMPARISON: Comparison to multiple prior studies sequentially, with oldest reviewed study dated 04/04. BREAST PARENCHYMAL COMPOSITION: Not dense: There are scattered areas of fibroglandular density. FINDINGS: There is no evidence of suspicious mass, calcification, or architectural distortion to sugg est malignancy in either breast. There has been no suspicious interval change. IMPRESSION: 1. No mammographic evidence of malignancy. 2. Recommend routine screening mammography in one year. BI-RADS Category 1: Negative Reviewed, dictated and finalized at location B. [facility] [employer]
== END 2024-10-21 09:52 | disposition home or self-care (01) ==
LOC: CHSIMG 09:52
PROVIDERS: PCP Internal Medicine; Visit Provider Nurse Practitioner Obstetrics & Gynecology
DX: Z12.31 Encounter for screening mammogram for malignant neoplasm of breast (principal)
CPT/HCPCS: 77063; 77067

== ENCOUNTER 2024-12-13 13:15 | Outpatient (CLI) | payer OTHER, BC, SELFPAY ==
[2024-12-13 13:35] LABS: Amphetamine Screen Urine Negative (Negative); Barbiturate Screen Urine Negative (Negative); Benzodiazepines Screen Urine Negative (Negative); Cannabinoid Screen Urine Negative (Negative); Cocaine Screen Urine Negative (Negative); Methadone Screen Urine Negative (Negative); Opiate Screen Urine Negative (Negative); Phencyclidine Screen Urine Negative (Negative)
== END 2024-12-13 13:16 | disposition home or self-care (01) ==
LOC: CHSLAB 13:18
PROVIDERS: PCP Internal Medicine; Visit Provider Internal Medicine
DX: Z79.891 Long term (current) use of opiate analgesic (principal)
CPT/HCPCS: 80307

== ENCOUNTER 2025-01-03 07:09 | Outpatient (CLI) | payer OTHER, BC, SELFPAY ==
[2025-01-03 07:33] LABS: Hematocrit 35.5 % (35.0-49.0); Mean Corpuscular Hemoglobin 25.3 pg (27.0-31.0); Mean Corpuscular Volume 81.8 fL (78.0-102.0); Mean Platelet Volume 10.6 fl (9.2-11.8); Platelet Count Result 486 K/mm3 (150-420); Red Blood Count 4.34 M/mm3 (4.20-5.40); Red Cell Distribution Width 13.2 % (11.6-14.4); White Blood Count 9.5 K/mm3 (4.8-10.8)
[2025-01-03 08:09] LABS: Alanine Aminotransferase 35 U/L (14-59); Albumin Level 3.5 g/dL (3.4-5.0); Alkaline Phosphatase 83 U/L (46-116); Anion Gap 8 mmol/L (4-12); Aspartate Amino Transferase 26 U/L (15-37); Bilirubin,Total 0.7 mg/dL (0.00-1.00); Blood Urea Nitrogen 13 mg/dL (7-18); Calcium 8.5 mg/dL (8.5-10.1); Carbon Dioxide 29 mmol/L (21-32); Chloride 104 mmol/L (98-108); Cholesterol 212 mg/dL (0-200); Estimated Glomerular Filt Rate > 60; Glucose 89 mg/dL (70-99); HDL Direct 90 mg/dL (40-60); LDL Cholesterol Calculated 111 mg/dL (<130); Osmolality Calculated 291 mOsm/kg (285-295); Potassium 4.2 mmol/L (3.5-5.1); Sodium 141 mmol/L (136-145); Thyroid Stimulating Hormone 5.62 uIU/mL (0.36-3.74); Total Protein 6.8 g/dL (6.4-8.2); Triglycerides 56 mg/dL (0-150)
[2025-01-03 08:49] LABS: Add Urine Microscopic? NO; Appearance Urine Clear (Clear); Bilirubin Urine Negative (Negative); Blood Urine Negative (Negative); Color Urine Yellow (Yellow); Glucose Urine UA Negative (Negative); Ketones Urine Negative (Negative); Leukocyte Esterase Ur Negative (Negative); Nitrate Urine Negative (Negative); Protein Urine Negative (Negative); Specific Grav Ur 1.025 (1.010-1.020); Urobilinogen Urine 0.2 mg/dL (0.2-1.0)
[2025-01-03 11:11] LABS: Immature Reticulocyte Fraction 15.5 % (2.0-16.52); Reticulocyte Hemoglobin Conten 29.9 pg (28.0-35.0); Reticulocyte Percent 0.99 % (0.50-1.50); Reticulocytes Absolute 0.04 M/mm3 (0.02-0.10)
[2025-01-03 11:34] LABS: Ferritin 11 ng/mL (8-252); Iron 37 ug/dL (50-170); Percent Iron Saturation 8 % (12-57)
[2025-01-05 02:08] LABS: Vitamin D 25 Hydroxy 31 ng/mL (30-100)
[2025-01-06 18:18] LABS: Red Blood Cell Folate 546 ng/mL RBC (>280)
[2025-01-07 09:38] LABS: Methylmalonic Acid 105 nmol/L (55-335)
== END 2025-01-03 07:10 | disposition home or self-care (01) ==
LOC: CHSLAB 07:11
PROVIDERS: PCP Internal Medicine; Visit Provider Internal Medicine
DX: Z00.00 Encounter for general adult medical examination without abnormal findings (principal); D64.9 Anemia, unspecified; Z98.84 Bariatric surgery status; E55.9 Vitamin D deficiency, unspecified; E03.8 Other specified hypothyroidism
CPT/HCPCS: 36415; 80053; 80061; 81003; 82306; 82728; 82747; 83540; 83550; 83921; 84443; 85027; 85046

== ENCOUNTER 2025-04-29 14:40 | Outpatient (CLI) | payer OTHER, BC, SELFPAY ==
[2025-04-29 14:53] LABS: Hematocrit 37.9 % (35.0-49.0); Hemoglobin 12.1 g/dL (12.0-15.0)
[2025-04-29 16:02] LABS: Thyroid Stimulating Hormone 0.146 uIU/mL (0.465-4.680)
== END 2025-04-29 14:41 | disposition home or self-care (01) ==
PROVIDERS: PCP Internal Medicine; Visit Provider Internal Medicine
DX: D64.9 Anemia, unspecified (principal); E03.9 Hypothyroidism, unspecified
CPT/HCPCS: 36415; 82728; 84443; 85014; 85018

== ENCOUNTER 2025-08-11 15:55 | Outpatient (CLI) | payer BC, SELFPAY ==
[2025-08-11 16:05] LABS: Hematocrit 43.2 % (35.0-49.0); Hemoglobin 13.8 g/dL (12.0-15.0); Mean Corpuscular HGB Conc 31.9 g/dL (32-36); Mean Corpuscular Hemoglobin 29.1 pg (27.0-31.0); Mean Corpuscular Volume 91.1 fL (78.0-102.0); Platelet Count Result 394 K/mm3 (150-420); Red Blood Count 4.74 M/mm3 (4.20-5.40); White Blood Count 9.2 K/mm3 (4.8-10.8)
[2025-08-11 16:25] LABS: Alanine Aminotransferase 38 U/L (6-35); Albumin Level 4.3 g/dL (3.5-5.1); Alkaline Phosphatase 77 U/L (38-126); Anion Gap 9 mmol/L (4-12); Aspartate Amino Transferase 34 U/L (14-36); Bilirubin,Total 0.5 mg/dL (0.2-1.3); Blood Urea Nitrogen 17 mg/dL (7-17); Calcium 9.4 mg/dL (8.4-10.2); Carbon Dioxide 25 mmol/L (22-30); Chloride 106 mmol/L (98-107); Estimated Glomerular Filt Rate > 60; Glucose 92 mg/dL (65-110); Osmolality Calculated 291 mOsm/kg (285-295); Potassium 4.4 mmol/L (3.4-5.0); Sodium 140 mmol/L (137-145); Total Protein 8.1 g/dL (6.3-8.2)
[2025-08-11 16:56] LABS: Thyroid Stimulating Hormone 0.522 uIU/mL (0.465-4.680)
[2025-08-11 17:01] LABS: Ferritin 12.20 ng/mL (6.24-137)
== END 2025-08-11 15:56 | disposition home or self-care (01) ==
LOC: CHSLAB 15:56
PROVIDERS: PCP Internal Medicine; Visit Provider Internal Medicine
DX: D50.9 Iron deficiency anemia, unspecified (principal); E03.9 Hypothyroidism, unspecified
CPT/HCPCS: 36415; 80053; 82728; 84443; 85027; 85380

== ENCOUNTER 2025-09-11 07:12 | Outpatient (CLI) | payer BC, OTHER, SELFPAY ==
[2025-09-11 07:48] LABS: Hemoglobin A1C 5.1 % (<5.7)
[2025-09-11 08:29] LABS: Cholesterol 199 mg/dL (0-200); HDL Direct 93 mg/dL; Triglycerides 95 mg/dL (<150)
[2025-09-12 07:09] LABS: FSH 9.0 mIU/mL (.)
[2025-09-12 12:08] LABS: LH 12.6 mIU/mL (.)
[2025-09-16 09:08] LABS: Free Testosterone (Direct) 2.2 pg/mL (0.0-4.2)
[2025-09-16 18:08] LABS: Estradiol, Sensitive 84.3 pg/mL (.)
== END 2025-09-11 07:13 | disposition home or self-care (01) ==
LOC: CHSLAB 07:16
PROVIDERS: PCP Internal Medicine
DX: R73.9 Hyperglycemia, unspecified (principal); E78.00 Pure hypercholesterolemia, unspecified; E03.9 Hypothyroidism, unspecified; N95.9 Unspecified menopausal and perimenopausal disorder
CPT/HCPCS: 36415; 80061; 82670; 83001; 83002; 83036; 83525; 84144; 84270; 84402; 84403